=== PATIENT | male | born 1960 | race Caucasian/White ===

== ENCOUNTER 2022-08-24 13:45 | Emergency (ER) | payer BC, OTHER ==
[2022-08-24 14:12] VITALS: BP 147/91; PULSE 67
[2022-08-24] MEDS ORDERED: Doxycycline 100 MG Cap PO ONE (14:36)
== END 2022-08-24 14:43 | disposition home or self-care (01) ==
LOC: JP.ED 13:45
DX: S70.361A Insect bite (nonvenomous), right thigh, initial encounter (principal); W57.XXXA Bitten or stung by nonvenomous insect and other nonvenomous arthropods, initial encounter
CPT/HCPCS: 99281; A9270